=== PATIENT | female | born 1930 | race Native Hawaiian/Other Pacific Islander ===

== ENCOUNTER 2017-01-31 10:36 | Outpatient (CLI) | payer OTHER ==
[~2017-01-31] VITALS: Ht 152.4 cm; Wt 41.7 kg
[~2017-01-31 10:36] MED LIST: CIPRO500 MG PO; COZAAR100 MG PO; DICL1GEL2 TOP; DONE5TAB PO; FLECTOR1.3 % TD; FLUC150T PO; HYDR12.54; HYDR25CA25 PO; LABETALOL100 MG OR; LEVO0.08 PO; LIPITOR10 MG PO; NITROFURANTN100 MG OR; OXCARBAZEPIN300 MG PO; ROSU10TA PO; RYBIX ODT50 MG OR; TRAM50TA PO; TRIA0.1C5 TOP; ZOFRAN8 MG PO
== END 2017-01-31 18:56 | disposition home or self-care (01) ==
LOC: INF 10:36
DX: N39.0 Urinary tract infection, site not specified (principal); R05 Cough
CPT/HCPCS: 96365; J0696

== ENCOUNTER 2017-03-28 12:48 | Outpatient (CLI) | payer OTHER | END 2017-03-28 13:50 | disposition home or self-care (01) | LOC: LABW 12:48 | DX: R53.83 Other fatigue (principal) | CPT/HCPCS: 36415; 82607; 82746 ==

== ENCOUNTER 2017-04-21 14:01 | Outpatient (CLI) | payer OTHER | END 2017-04-21 18:58 | disposition home or self-care (01) | LOC: LAB 14:01 | DX: N39.0 Urinary tract infection, site not specified (principal) | CPT/HCPCS: 87077; 87086; 87088; 87186 ==

== ENCOUNTER 2017-08-13 09:56 | Outpatient (CLI) | payer OTHER | END 2017-08-13 18:18 | disposition home or self-care (01) | LOC: LAB 09:56 | DX: R31.9 Hematuria, unspecified (principal) | CPT/HCPCS: 87077; 87086; 87088; 87186 ==

== ENCOUNTER 2017-08-26 16:42 | Outpatient (CLI) | payer OTHER | END 2017-08-26 22:57 | disposition home or self-care (01) | LOC: LABW 16:42 | DX: R53.83 Other fatigue (principal) | CPT/HCPCS: 36415; 82607; 82746 ==

== ENCOUNTER 2017-09-12 12:42 | Outpatient (CLI) | payer OTHER ==
[2017-09-12] MEDS ORDERED: ASPIRIN ADULT L81 M1 PO (13:09)
[2017-09-12] MEDS ORDERED: LABETALOL100 MG PO (17:38)
== END 2017-09-12 12:54 | disposition short-term general hospital (02) ==
LOC: AMB 12:42
DX: R41.82 Altered mental status, unspecified (principal)
CPT/HCPCS: A0425; A0427

== ENCOUNTER 2017-09-12 12:54 | Inpatient (IN) | payer OTHER ==
[~2017-09-12] VITALS: Ht 154.9 cm; Wt 42.0 kg
[2017-09-12 12:55] VITALS: BP 138/62; TEMP 98.5
[2017-09-12 13:05] VITALS: BP 127/74
[2017-09-12] MEDS ORDERED: ASPIRIN ADULT L81 M1 PO (13:09)
[2017-09-12 13:39] LABS: PLATELET COUNT 149 K/uL (152-353)
[2017-09-12 13:46] LABS: POTASSIUM 4.5 mmol/L (3.6-5.2)
[2017-09-12 14:00] VITALS: BP 134/77
[2017-09-12 14:01] LABS: PARTIAL THROMBOPLASTIN TIME 21.4 SECONDS (24.5-33.6)
[2017-09-12 15:00] VITALS: BP 134/69
[2017-09-12 17:04] VITALS: BP 142/42; TEMP 98.3; Ht 154.9 cm; Wt 42.0 kg
[2017-09-12] MEDS ORDERED: LABETALOL100 MG PO (17:38)
[2017-09-12 20:00] VITALS: BP 152/62; TEMP 98.2
[2017-09-13] VITALS (7 sets, daily range): BP systolic 107–196; BP diastolic 47–65; TEMP 97.7–99.2
[2017-09-13 06:27] LABS: PLATELET COUNT 100 K/uL (152-353)
[2017-09-13 06:40] LABS: POTASSIUM 4.1 mmol/L (3.6-5.2)
[2017-09-14 04:00] VITALS: BP 168/68; TEMP 98
[2017-09-14 07:55] LABS: PLATELET COUNT 103 K/uL (152-353)
[2017-09-14 08:00] VITALS: BP 135/92; TEMP 98.1
[2017-09-14 08:00] LABS: POTASSIUM 3.7 mmol/L (3.6-5.2)
[2017-09-14 12:00] VITALS: BP 144/54; TEMP 98
[2017-09-14 16:00] VITALS: BP 192/73; TEMP 98
[2017-09-14 19:58] VITALS: BP 168/78; TEMP 98.3
[2017-09-15] VITALS (7 sets, daily range): BP systolic 96–189; BP diastolic 56–86; TEMP 97.7–98.8
[2017-09-15 06:22] LABS: PLATELET COUNT 115 K/uL (152-353)
[2017-09-15 06:45] LABS: POTASSIUM 3.6 mmol/L (3.6-5.2)
[2017-09-16 04:00] VITALS: BP 179/63; TEMP 97.6
[2017-09-16 06:02] LABS: PLATELET COUNT 119 K/uL (152-353)
[2017-09-16 06:30] LABS: POTASSIUM 4.1 mmol/L (3.6-5.2)
[2017-09-16 08:00] VITALS: BP 173/66; TEMP 97.9
[2017-09-16 12:00] VITALS: BP 150/63; TEMP 97.8
[2017-09-16 16:00] VITALS: BP 165/62; TEMP 98.1
[2017-09-16 19:35] VITALS: BP 145/92; BP 185/73; TEMP 98; TEMP 98.9
[2017-09-17 00:25] VITALS: BP 164/73; TEMP 98
[2017-09-17 04:00] VITALS: BP 170/71; TEMP 97.6
[2017-09-17 05:23] LABS: PLATELET COUNT 131 K/uL (152-353)
[2017-09-17 08:00] VITALS: BP 164/63; TEMP 98
[2017-09-17 13:00] VITALS: BP 142/60; TEMP 97.9
[2017-09-17 16:00] VITALS: BP 139/57; TEMP 98.7
[2017-09-17 20:00] VITALS: BP 170/67; TEMP 97.6
[2017-09-18] VITALS: BP 170/67; TEMP 97.9
[2017-09-18 03:50] VITALS: BP 177/58; TEMP 97.8
[2017-09-18 04:48] LABS: PLATELET COUNT 139 K/uL (152-353)
[2017-09-18 05:17] LABS: POTASSIUM 4.3 mmol/L (3.6-5.2)
[2017-09-18 08:17] VITALS: BP 153/70; TEMP 97.9
[2017-09-18 12:00] VITALS: BP 146/54; TEMP 98.3
[2017-09-18 16:00] VITALS: BP 154/56; TEMP 98.5
[2017-09-18 20:00] VITALS: BP 144/58; TEMP 98.4
[2017-09-19] VITALS: BP 158/55; TEMP 98.6
[2017-09-19 04:00] VITALS: BP 178/78; TEMP 98.8
[2017-09-19 08:00] VITALS: BP 184/75; TEMP 97.6
[2017-09-19 12:08] VITALS: BP 135/59; TEMP 98.6
[2017-09-19 16:00] VITALS: BP 139/63; TEMP 97.9
[2017-09-19 19:40] VITALS: BP 152/44; TEMP 97.3
[2017-09-20 00:26] VITALS: BP 150/62; TEMP 98.7
[2017-09-20 04:00] VITALS: BP 175/75; TEMP 98.1
[2017-09-20 05:05] LABS: PLATELET COUNT 151 K/uL (152-353)
[2017-09-20 05:15] LABS: POTASSIUM 4.4 mmol/L (3.6-5.2)
[2017-09-20 08:00] VITALS: BP 151/52; TEMP 98.1
== END 2017-09-20 10:55 | disposition home or self-care (01) | DRG 689 ==
LOC: ED 12:54 → MED/SURG 15:46
PROVIDERS: Internal Medicine; ADMIT Family Medicine
DX: N10 Acute pyelonephritis (principal); G93.41 Metabolic encephalopathy; E87.1 Hypo-osmolality and hyponatremia; E46 Unspecified protein-calorie malnutrition; R41.82 Altered mental status, unspecified; I10 Essential (primary) hypertension; G62.9 Polyneuropathy, unspecified; J44.9 Chronic obstructive pulmonary disease, unspecified; G47.09 Other insomnia; D64.89 Other specified anemias; E03.8 Other specified hypothyroidism; G20 Parkinson's disease; F02.80 Dementia in other diseases classified elsewhere, unspecified severity, without behavioral disturbance, psychotic disturbance, mood disturbance, and anxiety; D72.828 Other elevated white blood cell count; M81.8 Other osteoporosis without current pathological fracture; D69.6 Thrombocytopenia, unspecified; H61.23 Impacted cerumen, bilateral
CPT/HCPCS: 36415; 80048; 80053; 81000; 84443; 84484; 85027; 85610; 85651; 85730; 87040; 87077; 87086; 87088; 87186; 93005; 96361; 96365; 96366; 99284; J1956; J0696; J2920; J3411; J3490

== ENCOUNTER 2017-09-23 09:22 | Outpatient (CLI) | payer OTHER ==
[~2017-09-23 09:22] MED LIST changes: +ASPIRIN ADULT L81 M1 PO; +LABETALOL100 MG PO
[2017-09-23 09:33] LABS: PLATELET COUNT 197 K/uL (152-353)
[2017-09-23 09:51] LABS: POTASSIUM 4.3 mmol/L (3.6-5.2)
== END 2017-09-23 19:33 | disposition home or self-care (01) ==
LOC: LABW 09:22
PROVIDERS: Internal Medicine
DX: I10 Essential (primary) hypertension (principal); N39.0 Urinary tract infection, site not specified
CPT/HCPCS: 36415; 80053; 81000; 84443; 85027

== ENCOUNTER 2017-10-02 13:29 | Outpatient (CLI) | payer OTHER | END 2017-10-02 22:06 | disposition home or self-care (01) | LOC: LAB 13:29 | DX: I10 Essential (primary) hypertension (principal); N39.0 Urinary tract infection, site not specified | CPT/HCPCS: 81000 ==

== ENCOUNTER 2017-10-30 14:26 | Outpatient (CLI) | payer OTHER | END 2017-10-30 20:33 | disposition home or self-care (01) | LOC: LAB 14:26 | DX: N39.0 Urinary tract infection, site not specified (principal); N11.0 Nonobstructive reflux-associated chronic pyelonephritis | CPT/HCPCS: 81000 ==

== ENCOUNTER 2017-11-10 17:01 | Outpatient (CLI) | payer OTHER | END 2017-11-10 22:48 | disposition home or self-care (01) | LOC: RAD 17:01 | DX: M79.672 Pain in left foot (principal) ==

== ENCOUNTER 2017-11-25 12:44 | Outpatient (CLI) | payer OTHER | END 2017-11-25 23:15 | disposition home or self-care (01) | LOC: US 12:44 | DX: I73.89 Other specified peripheral vascular diseases (principal) ==

== ENCOUNTER 2017-12-09 12:45 | Outpatient (CLI) | payer OTHER | END 2017-12-09 23:49 | disposition home or self-care (01) | LOC: LAB 12:45 | DX: R30.0 Dysuria (principal); R82.99 Other abnormal findings in urine | CPT/HCPCS: 81000; 87077; 87086; 87088; 87186 ==

== ENCOUNTER 2018-02-11 15:16 | Outpatient (CLI) | payer OTHER | END 2018-02-11 19:44 | disposition home or self-care (01) | LOC: RAD 15:16 | DX: G62.89 Other specified polyneuropathies (principal) ==

== ENCOUNTER 2018-02-23 11:03 | Outpatient (CLI) | payer OTHER ==
[2018-02-23] MEDS ORDERED: NEURONTIN 100M100 MG PO (11:34)
[2018-02-23] MEDS ORDERED: DULCOLAX SS100 MG PO (11:36)
[2018-02-23] MEDS ORDERED: SINEMET1 TA2 PO (11:38)
== END 2018-02-23 11:14 | disposition short-term general hospital (02) ==
LOC: AMB 11:03
DX: G40.89 Other seizures (principal)
CPT/HCPCS: A0425; A0427

== ENCOUNTER 2018-02-23 11:16 | Emergency (ER) | payer OTHER ==
[~2018-02-23] VITALS: Ht 154.9 cm; Wt 41.0 kg
[2018-02-23 11:16] VITALS: TEMP 97.3
[2018-02-23] MEDS ORDERED: NEURONTIN 100M100 MG PO (11:34)
[2018-02-23] MEDS ORDERED: DULCOLAX SS100 MG PO (11:36)
[2018-02-23] MEDS ORDERED: SINEMET1 TA2 PO (11:38)
[2018-02-23 12:00] LABS: PLATELET COUNT 190 K/uL (152-353)
[2018-02-23 12:13] LABS: POTASSIUM 4.2 mmol/L (3.6-5.2); SODIUM 136 mmol/L (136-145)
[2018-02-23 16:00] VITALS: BP 115/52
== END 2018-02-23 16:00 | disposition home or self-care (01) ==
LOC: ED 11:16
DX: G45.9 Transient cerebral ischemic attack, unspecified (principal); R91.8 Other nonspecific abnormal finding of lung field
CPT/HCPCS: 36415; 80053; 81000; 82550; 82553; 84484; 85027; 93005; 99283

== ENCOUNTER 2018-03-11 14:40 | Outpatient (CLI) | payer OTHER ==
[~2018-03-11 14:40] MED LIST changes: +DULCOLAX SS100 MG PO; +NEURONTIN 100M100 MG PO; +SINEMET1 TA2 PO
== END 2018-03-11 19:26 | disposition home or self-care (01) ==
LOC: LAB 14:40
DX: N39.0 Urinary tract infection, site not specified (principal); F03.90 Unspecified dementia, unspecified severity, without behavioral disturbance, psychotic disturbance, mood disturbance, and anxiety
CPT/HCPCS: 81000; 87088

== ENCOUNTER 2018-03-31 14:59 | Outpatient (CLI) | payer OTHER | END 2018-03-31 22:21 | disposition home or self-care (01) | LOC: LAB 14:59 | DX: N39.0 Urinary tract infection, site not specified (principal) | CPT/HCPCS: 81000 ==

== ENCOUNTER 2018-04-13 16:54 | Emergency (ER) | payer OTHER ==
[~2018-04-13] VITALS: Ht 154.9 cm; Wt 40.8 kg
[2018-04-13 18:09] LABS: PLATELET COUNT 182 K/uL (152-353)
[2018-04-13 18:21] LABS: POTASSIUM 4.2 mmol/L (3.6-5.2)
[2018-04-13 22:40] VITALS: BP 210/101; TEMP 98.2
== END 2018-04-13 22:05 | disposition home or self-care (01) ==
LOC: ED 16:54
DX: M48.55XA Collapsed vertebra, not elsewhere classified, thoracolumbar region, initial encounter for fracture (principal); K59.09 Other constipation
CPT/HCPCS: 36415; 80053; 82150; 83690; 85027; 96374; 99284; J2405; Q9963

== ENCOUNTER 2018-08-08 03:31 | Outpatient (CLI) | payer OTHER ==
[2018-08-08] MEDS ORDERED: CARB/LEVO1 TA2 PO (04:08)
== END 2018-08-08 03:41 | disposition short-term general hospital (02) ==
LOC: AMB 03:31
DX: R11.11 Vomiting without nausea (principal); I10 Essential (primary) hypertension
CPT/HCPCS: A0425; A0427

== ENCOUNTER 2018-08-08 03:51 | Emergency (ER) | payer OTHER ==
[~2018-08-08] VITALS: Ht 154.9 cm; Wt 34.0 kg
[2018-08-08 04:07] VITALS: TEMP 97.2
[2018-08-08] MEDS ORDERED: CARB/LEVO1 TA2 PO (04:08)
[2018-08-08 04:42] LABS: PLATELET COUNT 223 K/uL (152-353)
[2018-08-08 04:50] LABS: POTASSIUM 3.7 mmol/L (3.6-5.2); SODIUM 137 mmol/L (136-145)
[2018-08-08 07:15] VITALS: BP 170/84
== END 2018-08-08 07:15 | disposition home or self-care (01) ==
LOC: ED 03:51
PROVIDERS: Internal Medicine
DX: N30.80 Other cystitis without hematuria (principal); R11.2 Nausea with vomiting, unspecified; R10.84 Generalized abdominal pain; R13.19 Other dysphagia; R00.0 Tachycardia, unspecified
CPT/HCPCS: 74022; 80053; 81000; 82150; 83690; 84484; 85027; 87077; 87086; 87088; 87186; 93005; 96365; 96374; 96375; 99284; J0696; J1885; J2405

== ENCOUNTER 2018-08-24 11:13 | Outpatient (CLI) | payer OTHER ==
[~2018-08-24 11:13] MED LIST changes: +CARB/LEVO1 TA2 PO
[2018-08-24 11:55] LABS: POTASSIUM 4.5 mmol/L (3.6-5.2)
[2018-08-24 12:09] LABS: PLATELET COUNT 155 K/uL (152-353)
== END 2018-08-24 23:29 | disposition home or self-care (01) ==
LOC: LAB 11:13
PROVIDERS: Internal Medicine
DX: N39.0 Urinary tract infection, site not specified (principal); I10 Essential (primary) hypertension
CPT/HCPCS: 80053; 80061; 81000; 84439; 84443; 85027; 87077; 87086; 87088; 87186

== ENCOUNTER 2018-09-18 09:54 | Outpatient (CLI) | payer OTHER ==
[~2018-09-18] VITALS: Ht 172.7 cm; Wt 31.8 kg
[2018-09-18 11:15] VITALS: BP 165/46; TEMP 97.3
== END 2018-09-18 22:40 | disposition home or self-care (01) ==
LOC: INF 09:54
DX: E86.0 Dehydration (principal)
CPT/HCPCS: 96360; 96361

== ENCOUNTER 2018-09-23 14:59 | Outpatient (CLI) | payer OTHER | END 2018-09-23 23:19 | disposition home or self-care (01) | LOC: LAB 14:59 | DX: N39.0 Urinary tract infection, site not specified (principal) | CPT/HCPCS: 81000 ==

== ENCOUNTER 2019-02-02 12:40 | Outpatient (CLI) | payer OTHER | END 2019-02-02 20:18 | disposition home or self-care (01) | LOC: LAB 12:40 | DX: N39.0 Urinary tract infection, site not specified (principal) | CPT/HCPCS: 87077; 87086; 87088; 87186 ==

== ENCOUNTER 2019-04-09 17:27 | Emergency (ER) | payer OTHER ==
[~2019-04-09] VITALS: Ht 172.7 cm; Wt 38.6 kg
[2019-04-09 17:42] VITALS: TEMP 97.9
[2019-04-09 18:46] LABS: PLATELET COUNT 211 K/uL (152-353)
[2019-04-09 22:02] VITALS: BP 160/54
== END 2019-04-09 22:21 | disposition home or self-care (01) ==
LOC: ED 17:27
PROVIDERS: Family Medicine
DX: D72.828 Other elevated white blood cell count (principal); R31.9 Hematuria, unspecified; E86.0 Dehydration
CPT/HCPCS: 80053; 81000; 85027; 96365; 96374; 96375; 99284; J0696; J1885; J2405

== ENCOUNTER 2019-04-27 08:20 | Outpatient (CLI) | payer OTHER ==
[2019-04-27 09:10] LABS: POTASSIUM 3.8 mmol/L (3.6-5.2)
[2019-04-27 09:54] LABS: PLATELET COUNT 162 K/uL (152-353)
== END 2019-04-27 20:14 | disposition home or self-care (01) ==
LOC: LAB 08:20
PROVIDERS: Internal Medicine
DX: R19.5 Other fecal abnormalities (principal); N39.0 Urinary tract infection, site not specified; D72.828 Other elevated white blood cell count
CPT/HCPCS: 80053; 81000; 82272; 83630; 85027

== ENCOUNTER 2019-04-30 16:06 | Outpatient (CLI) | payer OTHER | END 2019-04-30 19:55 | disposition home or self-care (01) | LOC: LABW 16:06 | DX: R19.5 Other fecal abnormalities (principal) | CPT/HCPCS: 82272; 83630; 87015; 87045; 87324; 87328; 87329; 87449; 87507; 87899 ==

== ENCOUNTER 2019-10-07 11:34 | Outpatient (CLI) | payer OTHER | END 2019-10-07 19:02 | disposition home or self-care (01) | LOC: LAB 11:34 | DX: R41.0 Disorientation, unspecified (principal) | CPT/HCPCS: 81000 ==